=== PATIENT | female | born 1995 | race Two or more races ===

== ENCOUNTER 2021-01-19 12:59 | Emergency (ER) | payer OTHER ==
[2021-01-19 13:16] VITALS: BMI 35.6
[2021-01-19 14:00] LABS: HCG,QUALITATIVE URINE Negative
[2021-01-19 14:27] LABS: ALBUMIN 3.8 g/dl (3.4-5.0); CALCIUM 8.7 mg/dl (8.5-10); CREATININE 0.6 mg/dl (0.55-1.3); TOT PROT 7.5 g/dl (6.4-8.2)
[2021-01-19 14:36] LABS: ACTIVATED PTT 30.3 SECONDS (25.2-36.5)
[2021-01-19 14:40] LABS: INR 1.19 (0.82-1.09); PROTHROMBIN TIME (PATIENT) 13.2 SEC (10.2-13.0)
[2021-01-19 15:18] LABS: BASO % 0.3 % (0-2.0); EOS % 0.3 % (0-4.5); HEMATOCRIT 35.2 % (32.4-45.2); HEMOGLOBIN 11.6 GM/dL (10.7-15.3); LYMPH % 21.7 % (8-40); MCH 25.2 pg (25.7-33.7); MEAN CELL VOLUME 76.4 fl (80-96); MEAN PLT VOLUME 10.9 fl (7.5-11.1); MONO % 9.1 % (3.8-10.2); NEUT % 68.6 % (42.8-82.8); PLATELET COUNT 200 10^3/uL (134-434); RDW 14.6 % (11.6-15.6)
[2021-01-19] MEDS ORDERED: ACETAMINOPHEN 325 MG TABLET (FP) PO ONE (15:22)
[2021-01-19] MEDS ORDERED: ACETAMINOPHEN 325 MG TABLET (FP) ONE (15:30)
[2021-01-19 16:50] VITALS: BP 122/78; PULSE 87; TEMP 98.7
== END 2021-01-19 16:50 | disposition home or self-care (01) ==
LOC: FER 12:59
DX: N83.291 Other ovarian cyst, right side (principal)
CPT/HCPCS: 36415; 74177-TC; 76830-TC; 80053; 81003; 84703; 85025; 85610; 85730; 86850; 86900; 86901; 87086; 99285-25; Q9967